=== PATIENT | male | born 1995 | race Two or more races ===

== ENCOUNTER 2019-04-18 09:15 | Emergency (ER) | payer MEDICAID ==
[~2019-04-18] VITALS: Ht 172.7 cm; Wt 72.7 kg
[2019-04-18 09:19] VITALS: BP 118/80
== END 2019-04-18 10:40 | disposition home or self-care (01) ==
LOC: EMS 09:18
DX: K08.89 Other specified disorders of teeth and supporting structures (principal); F17.210 Nicotine dependence, cigarettes, uncomplicated

== ENCOUNTER 2019-04-30 22:32 | Emergency (ER) | payer MEDICAID ==
[~2019-04-30] VITALS: Ht 172.7 cm; Wt 72.7 kg
[2019-04-30 23:21] VITALS: BP 131/67
[2019-04-30] MEDS ORDERED: CLINDAMYCIN HCL 150 MG CAPSULE PO ONE (23:45)
== END 2019-04-30 23:55 | disposition home or self-care (01) ==
LOC: EMS 22:33
DX: K08.89 Other specified disorders of teeth and supporting structures (principal); F17.210 Nicotine dependence, cigarettes, uncomplicated
CPT/HCPCS: 99406